=== PATIENT | male | born 1965 | race Caucasian/White ===

== ENCOUNTER 2016-10-28 18:23 | Emergency (ER) | payer SELFPAY ==
[~2016-10-28] VITALS: Ht 177.8 cm; Wt 90.0 kg
[2016-10-28 18:37] VITALS: BP 134/93; PULSE 88; RESP 17; TEMP 98.7; O2SAT 100
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
[2016-10-29 04:00] VITALS: BP 142/81; PULSE 91; RESP 18; O2SAT 97
[2016-11-05] MEDS ORDERED: METO50TA PO (16:17)
[2016-11-05] MEDS ORDERED: ATEN25TA PO (16:17)
[2016-11-05] MEDS ORDERED: ENAL2.5T PO (16:17)
== END 2016-10-29 07:52 | disposition home or self-care (01) ==
LOC: NEPD 18:23
DX: F10.920 Alcohol use, unspecified with intoxication, uncomplicated (principal)
CPT/HCPCS: 99281

== ENCOUNTER 2016-11-10 18:27 | Emergency (ER) | payer SELFPAY ==
[~2016-11-10 18:27] MED LIST: ENAL2.5T PO; METO50TA PO
[2016-11-10 19:35] VITALS: BP 103/56; PULSE 87; RESP 18; TEMP 97.8; O2SAT 97
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
[2016-11-10] MEDS ORDERED: FURO20TA PO (20:20)
[2016-11-10] MEDS ORDERED: THYROID MED (20:20)
== END 2016-11-10 20:47 | disposition home or self-care (01) ==
LOC: NEDAMB 18:27
DX: F10.929 Alcohol use, unspecified with intoxication, unspecified (principal); I48.91 Unspecified atrial fibrillation; I10 Essential (primary) hypertension; I50.9 Heart failure, unspecified
CPT/HCPCS: 99283